=== PATIENT | female | born 1995 | race African-American/Black ===

== ENCOUNTER 2016-03-03 23:40 | Emergency (ER) | payer SELFPAY ==
[~2016-03-03] VITALS: Ht 167.6 cm; Wt 79.0 kg
[~2016-03-03 23:40] MED LIST: IBUP600T26 PO
[2016-03-03 23:42] VITALS: BP 120/70; PULSE 104; RESP 16; TEMP 98; O2SAT 97
[2016-03-04] MEDS ORDERED: AMOX875T PO (00:07)
--- NOTE | 2016-03-04 00:10 | PD ---
HPI Chief Complaint: ENT Complaint Time Seen by Provider: 00:07 Travel History International Travel<30 days: No Contact w/Intl Traveler<30days: No Traveled to known affect area: No History of Present Illness HPI 20-year-old black female presents to emergency department with a four-day history of feeling hot, sore throat and difficulty swallowing. She states that she has had a decrease in appetite due to her sore throat. She denies any nausea vomiting. No abdominal pain or diarrhea. No dysuria or frequency. No rashes or lesions. Symptoms are moderate. Worse with swallowing. PFSH Past Medical History Medical History: Denies Significant Hx Developmental Delay: No Diminished Hearing: No Immunizations Current: Yes Tetanus Vaccination: < 5 Years ?: Not LMP: YESTERDAY Past Surgical History Surgical History: No Previous Surgery Social History Alcohol Use: No Tobacco Use: No Substance Use: No Allergies-Medications (Allergen,Severity, Reaction): Coded Allergies: No Known Allergies (Unverified , 03/03/16) Reported Meds & Prescriptions Reported Meds & Active Scripts Active Amoxicillin 875 Mg Tab 875 Mg PO BID Review of Systems Except as stated in HPI: all other systems reviewed are Neg Physical Exam Narrative GENERAL: Well-developed, well-nourished in no acute distress. Nontoxic appearing. HEAD: Normocephalic, atraumatic. EYES: Pupils equal round and reactive. Extraocular motions intact. No scleral icterus. No injection or drainage. ENT: TMs clear without erythema. The external auditory canals clear. Nose: clear . Posterior pharynx is erythematous and moist. Positive tonsillar edema and white exudate. Uvula midline. Airway patent. NECK: Trachea midline.Supple, nontender, moves head freely. No central bony tenderness or spasm. Positive tonsillar and cervical adenopathy. CARDIOVASCULAR: Regular rate and rhythm without murmurs, gallops, or rubs. RESPIRATORY: Clear to auscultation. Breath sounds equal bilaterally. No wheezes , rales, or rhonchi. GASTROINTESTINAL: Abdomen soft, non-tender, nondistended. No hepato-splenomegaly , or palpable masses. No guarding. EXTREMITIES: No clubbing, cyanosis, or edema. No joint tenderness, effusion, or edema noted. BACK: Nontender without deformity or crepitance. No flank tenderness. Data Data Last Documented VS Vital Signs Date Time Temp Pulse Resp B/P Pulse Ox O2 Delivery O2 Flow Rate FiO2 03/03/16 23:42 98.0 104 16 120/70 97 Room Air Orders Amoxicillin (Trimox) (03/04/16 00:15) MDM Medical Decision Making Medical Screen Exam Complete: Yes Emergency Medical Condition: Yes Medical Record Reviewed: Yes Differential Diagnosis MDM: High Differential diagnoses: Strep throat, viral pharyngitis, mono, peritonsillar abscess, retropharyngeal abscess, Emmett's angina Narrative Course Patient is given amoxicillin 500 mg by mouth. This is acute exudative pharyngitis Diagnosis Primary Impression: acute exudative pharyngitis Patient Instructions: General Instructions Departure Forms: Tests/Procedures, Work Release Special Instructions: No work 2 days. Additional Instructions: Rest. Force fluids. Saltwater gargles. Tylenol and Advil. Chloraseptic [place] Cepastat lozenge. Amoxicillin. Follow-up with a primary care doctor in one week. Return to the ER if any problems. Med/Other Pt SpecificInfo: Prescription(s) given Scripts Amoxicillin 875 Mg Ozt172 Mg PO BID #20 TAB Prov:Byron Schmidt MD 03/04/16 Disposition: 01 DISCHARGE HOME Condition: Stable Hollis Lepe Mar 04, 2016 00:10
[2016-03-04] MEDS ORDERED: AMOXICILLIN (TRIHYDRATE) 500 MG CAP PO ONE (00:15)
== END 2016-03-04 00:51 | disposition home or self-care (01) ==
LOC: NEPB 23:40
DX: J02.9 Acute pharyngitis, unspecified (principal)
CPT/HCPCS: 99283